=== PATIENT | male | born 1955 | race Caucasian/White ===

== ENCOUNTER 2016-09-18 09:54 | Inpatient (IN) ==
[2016-09-18] MEDS ORDERED: NS 1,000 ML ONE (10:19)
[2016-09-18] MEDS ORDERED: TORADOL IV ONE (10:28)
[2016-09-18] MEDS ORDERED: NS 1,000 ML IV ONE (10:28)
[2016-09-18 10:50] LABS: EOS# 0.02 X1000 (0.0-0.7); EOS% 0.1 % (0.0-10.0); HEMATOCRIT 35.6 % (42.0-52.0); HEMOGLOBIN 12.1 g/dL (14.0-18.0); LYMPH# 0.38 X1000 (1.2-3.4); LYMPH% 1.7 % (20.5-51.1); MANUAL DIFF NEEDED? NO; MCH 29.6 PG (27-31); MONO# 1.16 X1000 (0.11-0.59); MONO% 5.1 % (1.7-9.3); MPV 10.5 FL (7.4-10.4); NEUT% 93.1 % (42.2-75.2); PLT 197 X1000 (130-400); RBC 4.09 XMIL (4.7-6.1)
--- NOTE | 2016-09-18 10:55 | Diag Imaging Result Doc PS360 ---
EXAM: CHEST-PORTABLE HISTORY: hypotension TECHNIQUE: AP portable erect at 1040 COMMENT: The inspiration is suboptimal. There is been no significant change since 01/23/2015. IMPRESSION: Stable chest. Electronically signed by Jeff Salinas 09/18/2016 10:52 AM
[2016-09-18 10:57] LABS: INR 1.38; PROTIME 14.8 Seconds (9.2-11.7)
[2016-09-18 11:07] LABS: CALCIUM 8.1 mg/dL (8.8-10.2); POTASSIUM 4.7 mmol/L (3.5-5.1); TOTAL PROTEIN 4.7 g/dL (6.3-8.3)
[2016-09-18] MEDS ORDERED: ZOSYN 3.375 GM/NS 3.375 GM/50 ML IVPB IV ONE (11:16)
[2016-09-18 11:17] LABS: TOTAL BILIRUBIN 18.52 mg/dL (0.20-1.00)
--- NOTE | 2016-09-18 11:20 | PROVIDER DOCUMENTATION ---
This chart was entered by Megan Quan Scribe, acting as scribe for Sudhir Desai MD. HPI-Abdominal Pain/GI Problem - General Chief Complaint: B/P Problems Stated Complaint: ABD PAIN,LOW B/P Time Seen by Provider: 09/18/16 10:13 Source: patient Allergies/Adverse Reactions: Patient Allergies Allergy/AdvReac Type Severity Reaction Status Date / Time No Known Allergies Allergy Verified 01/23/15 19:38 Home Medications: Home Medication List Medication Instructions Recorded Confirmed Last Taken Type Docusate Sodium [Colace] 100 mg PO DAILY #0 capsule 01/04/15 09/18/16 04/22/15 08:00 Rx Oxycodone/APAP 10 mg/325 mg 1 each PO Q6H PRN PRN #0 tablet 01/04/15 09/18/16 13:00 Rx [Percocet-10] Polyethylene Glycol 3350 [Miralax] 17 gm PO DAILY #0 powder, packet 01/04/1504/19/15 10:00 Rx LISINOpril/HCTZ [Prinzide 0.5 tab PO DAILY 03/27/15 09/18/16 04/22/15 08:00 History 20/12.5MG] Fentanyl 50 mcg TD Q3DAYS 09/18/16 09/18/16 3 Days Ago History - History of Present Illness-ABD Nature of Presenting Problems: Pt is 61 y/o M presents to the ED with generalized abdominal pain. Pt states pain has been present for "few days". Pt states rectal cancer and liver cancer. Pt states he is seeing Dr. Morel at the cancer center. Pt states he is weak and dizzy. Abdominal Pain Onset Location: reports: generalized abdomen Pain Radiation: reports: no radiation Quality of Pain: reports: aching Severity in ED: reports: moderate Onset/Duration: reports: other ("few days") Timing: reports: still present Activities at Onset: reports: light activity Exposure to sick contacts?: No Modifying Factors: improves with: nothing Associated Symptoms: reports: dizziness, weakness. denies: anxiety, arm pain, back/neck pain, chest pain, constipation, cough, diaphoresis, diarrhea, EENT symptoms, fatigue, fever/chills, genitourinary problems, headaches, heartburn, joint pain, loss of appetite, malaise, muscle aches, sinus congestion/drainage, nausea, rash, seizure, shortness of breath, sensory/motor loss, pain with inspiration, swelling/mass in abdomen, syncope, vomiting, trouble walking Last BM: unsure Dark Stools Present?: reports: none noticed Rectal Bleeding: reports: none Rectal Pain: reports: none Emesis Description: reports: none Bruising or Bleeding Gums?: No Similar Symptoms Previously?: Yes Recently seen or treated by another doctor?: Yes Review of Systems - Adult - REVIEW OF SYSTEMS - ADULT Constitutional: reports: no symptoms reported Eyes: reports: no symptoms reported Ears, Nose, Mouth & Throat: reports: no symptoms reported Cardiovascular: reports: no symptoms reported Respiratory: reports: no symptoms reported Gastrointestinal: reports: abdominal pain. denies: diarrhea, nausea, vomiting Genitourinary: reports: no symptoms reported Musculoskeletal: reports: muscle weakness. denies: bone pain, joint pain, neck pain Integumentary: reports: no symptoms reported Neurological: reports: dizziness/vertigo (dizziness). denies: headache/ migraines, numbness, seizure, syncope Psychiatric: reports: no symptoms reported Endocrine: reports: no symptoms reported Hematologic/Lymphatic: reports: no symptoms reported Allergic/Immunologic: reports: no symptoms reported All Other Systems: Reviewed and Negative Past History - Adult - PAST MEDICAL HISTORY-ADULT Review of Records: reports: Nursing Assessment Review, Medications Reviewed, Social history reviewed & non-contributory. Major Childhood Illnesses: reports: denies history Cardiovascular: reports: HTN Respiratory: reports: denies history Gastrointestinal: reports: cancer (rectal), hemorrhoids, other (erosive gastritis) Obstetrical/Gynecological: reports: denies history Genitourinary: reports: denies history Musculoskeletal: reports: denies history Neurological: reports: denies history Psychiatric: reports: denies history Endocrine/Immune: reports: denies history Other Conditions: reports: denies history - PRIOR SURGERIES/PROCEDURES Surgical/Procedure History: reports: cholecystectomy, bowel surgery - IMMUNIZATION STATUS Childhood Immunizations: See Nurse Assessment Flu Vaccine: See Nurse Assessment - FAMILY HISTORY Family History: reviewed, not pertinent - SOCIAL HISTORY Smoking: quit greater than 1 year, cigarettes Substance Use: denies Living Situation: family Physical Exam-General - PHYSICAL EXAM-ADULT Initial Vital Signs Reviewed: Yes - CONSTITUTIONAL General Appearance: alert, mild distress, other (ill in appearance) - EYES Eyes: PERRL/EOMI, other (jaundice to bilateral sclera). negative: sclera injected, subconjunctival hemorrhage - HEAD, EARS, NOSE, MOUTH & THROAT HENMT: normal ENT inspection. negative: angioedema, hearing deficit - NECK Neck: normal inspection. negative: trachial deviation - RESPIRATORY Respiratory: chest non-tender, lungs clear, normal breath sounds. negative: rhonchi, stridor, wheezing - CARDIOVASCULAR Cardiovascular: normal peripheral pulses, regular rate, rhythm. negative: systolic murmur, friction rub - GASTROINTESTINAL (ABDOMEN) Abdominal Exam: normal bowel sounds, distended, tenderness (generalized). negative: hernia, mass - LYMPHATIC Lymphatic: no adenopathy - MUSCULOSKELETAL Back Exam: normal inspection. negative: ecchymosis, swelling Extremity: normal range of motion, non-tender. negative: deformity, swelling, tenderness - SKIN Integumentary: warm/dry, jaundice. negative: diaphoresis, ecchymosis - NEUROLOGIC Neurologic: grossly normal. negative: aphasia, facial droop - PSYCHIATRIC Psych/Mental Status: oriented x 3. negative: anxious, disheveled, paranoid Progress - PLAN OF CARE/RESULTS Progress/Plan/Lab Results: Vital Signs - 8 hr 09/18/16 10:02 Temperature 97.5 F L Pulse Rate 84 Respiratory Rate 18 Blood Pressure 70/40 O2 Sat by Pulse Oximetry 97 Result Diagrams: 09/18/16 10:25 09/18/16 10:25 Departure - Departure Date of Disposition Decision: 09/18/16 Time of Disposition Decision: 11:17 DIAGNOSIS: Hypotension, Generalized weakness, SBP (spontaneous bacterial peritonitis) Disposition: ADMITTED INPATIENT 09 Certified Medical Emergency: Emergent Condition: Stable Referrals and Follow-Ups: None,PCP [Primary Care Provider] - - Critical Care Note This patient required my direct & personal management of CC.: No Attestation - Physician/ PASCUAL Attestation The physician spent face to face time with patient:: Yes Advanced Practice Provider documentation review:: The physician spent face to face time with this patient and agrees with all MLP documentation, treatment, and medical decision making by the MLP. See provider notes for further information. This chart was documented by the indicated scribe, (Megan Quan Scribe) and accurately reflects the services I performed and decisions made by Lloyd arango Christophe I, MD, as attested by the provider's signature.
[2016-09-18 11:59] LABS: URINE SOURCE CATH
[2016-09-18 12:07] LABS: BILIRUBIN URINE LARGE (NEGATIVE); BLOOD URINE SMALL (NEGATIVE); CLARITY SLIGHTLY CLOUDY (CLEAR); COLOR AMBER; GLUCOSE URINE 100 mg/dL (NEGATIVE); LEUKOCYTES URINE TRACE (NEGATIVE); NITRITE URINE POSITIVE (NEGATIVE); PH URINE 6.5; PROTEIN URINE 100 mg/dL (NEGATIVE); SP GRAVITY URINE >= 1.030; URINE CULTURE NEEDED? YES; URINE EPITHELIAL CELLS <10 /HPF (<10); URINE RBC <10 /HPF (<10); URINE WBC <10 /HPF (<10)
--- NOTE | 2016-09-18 14:54 | EKG Report ---
Test Performed on : 09/18/2016 10:49:50 AM Test Reason : LOW BP Blood Pressure : / mmHG Vent. Rate : 068 BPM Atrial Rate : 090 BPM P-R Int : 204 ms QRS Dur : 094 ms QT Int : 442 ms P-R-T Axes : 057 013 037 degrees QTc Int : 469 ms Sinus rhythm. with premature atrial complexes. Low voltage QRS Borderline ECG When compared with ECG of 23-JAN-2015 19:01, premature atrial complexes. are now present QRS voltage has decreased Unconfirmed Result
[2016-09-18] MEDS: NS 1,000 ML IV SCH (17:17)
[2016-09-18] MEDS: ZOSYN 3.375 GM/NS 3.375 GM/50 ML IVPB IV SCH ×2 (17:25→23:57)
[2016-09-18] MEDS: PERCOCET-10 PO PRN (18:41)
[2016-09-19] MEDS: PERCOCET-10 PO PRN ×4 (01:18→20:39)
[2016-09-19] MEDS: NS 1,000 ML IV SCH ×2 (06:04→20:40)
[2016-09-19] MEDS: ZOSYN 3.375 GM/NS 3.375 GM/50 ML IVPB IV SCH ×4 (06:05→23:36)
[2016-09-19] MEDS: ZOFRAN IV PRN (07:19)
[2016-09-19] MEDS: PRINZIDE 20/12.5MG PO SCH (08:52)
[2016-09-19] MEDS: MIRALAX PO SCH (09:44)
[2016-09-19] MEDS: COLACE PO SCH (09:44)
[2016-09-20] MEDS: PERCOCET-10 PO PRN ×2 (04:46→21:34)
[2016-09-20] MEDS: ZOFRAN IV PRN (04:47)
[2016-09-20] MEDS: ZOSYN 3.375 GM/NS 3.375 GM/50 ML IVPB IV SCH ×3 (06:17→17:24)
[2016-09-20] MEDS: COLACE PO SCH (08:42)
[2016-09-20] MEDS: MIRALAX PO SCH (08:42)
[2016-09-20] MEDS: PRINZIDE 20/12.5MG PO SCH (08:44)
--- NOTE | 2016-09-20 10:02 | HISTORY AND PHYSICAL ---
HISTORY OF PRESENT ILLNESS: He presented with lethargy and end-stage liver cancer. This is a 61- year-old well known to Dr. Mai. Was here I think last in December. He had resected rectal cancer, completing adjuvant chemotherapy. He received a couple cycles of FOLFOX and discharged from the hospital. He has received Neulasta injections to help. He was having trouble with frequent hiccups. He was discharged again from this hospital in April of 2015. Apparently, he finished his FOLFOX treatments and presents now, not eating, very lethargic, and may be approaching end-stage. PAST MEDICAL HISTORY: 1. Hypertension. 2. Rectal cancer. Chemotherapy with FOLFOX treatment, I think was completed. 3. GI bleed secondary to erosive gastritis in the past. PREVIOUS SURGICAL HISTORY: 1. Cholecystectomy. 2. Colon resection, tumor removal. 3. Colostomy. 4. Colostomy takedown. FAMILY HISTORY: Father had prostate cancer. Brother had congestive heart failure. Strong family history for diabetes mellitus. SOCIAL HISTORY: Patient was living alone. Stopped smoking about 10 years ago. Was a 2-3 pack a day smoker since age 13. ALLERGIES: No known drug allergies. MEDICATIONS: He is on Colace, lisinopril/hydrochlorothiazide 20/12.5 daily, Percocet 10 a day, MiraLAX. REVIEW OF SYSTEMS: Unable to elicit but just more lethargic. Eating less. Bowels, been constipated. No gross hematuria or dysuria. PHYSICAL EXAMINATION: VITAL SIGNS: On presentation, afebrile. Pulse 76, respirations 20, blood pressure 78/50. LUNGS: Clear in all lung haas. CARDIOVASCULAR EXAMINATION: Regular rhythm and rate without murmur or S3. ABDOMEN: Soft. Abdomen is distended. SKIN: Warm and dry. LABORATORY: Reviewed. Admission white count 22,720, hematocrit 35, platelet count 197,000. Sodium 123, potassium 4.7, chloride 93, BUN 41, creatinine 2.3. Total bilirubin 18.52, AST 384, ALT 98, alkaline phos 1775. Albumin 2. Prothrombin time was 14.8. Urinalysis unremarkable. Chest x-ray unremarkable. ASSESSMENT AND PLAN: End-stage metastatic rectal cancer. The liver appears to have some significant liver failure. I think the family is wanting to pursue hospice. We will see if hospice can evaluate and inpatient hospice care. We will continue to encourage oral intake but we will really address more comfort issues. Abdominal ultrasound done back in May. Heterogeneous liver with multiple heterogeneous echogenicities, masses. We will try some lactulose for his constipation. cc: Camilo Lentz MD
[2016-09-20] MEDS: LACTULOSE PO SCH ×2 (10:42→21:33)
[2016-09-20] MEDS: NS 1,000 ML IV SCH ×2 (10:43→21:33)
--- NOTE | 2016-09-20 11:40 | PROGRESS NOTE ---
DATE: 09/20/2016 SUBJECTIVE: Mr. Manning is doing a little better. He is awake today. He has complained of constipation. He maybe ate 1 bite of biscuit. He states he is not hurting. Cultures with no growth at 48 hours. Two blood cultures and urine culture negative. PHYSICAL EXAMINATION: Vital Signs: Today, 97.4 degrees, pulse 70, respirations 16, blood pressure 67/37. Lungs: Are clear in all lung haas. Cardiovascular Examination: Regular rhythm and rate without murmur or S3. Abdomen: Distended. Skin: He is jaundiced. Is and Os: Urine output 2700 mL. LAB: Reviewed from the . Chest x-ray from the was stable. No significant change from 01/24/2016. ASSESSMENT AND PLAN: 1. Liver cancer, approaching end-stage. 2. Distended abdomen with ascites, questionable peritonitis. Cultures are negative. Continue present antibiotics. 3. Poor oral intake, protein calorie malnutrition. cc: Camilo Lentz MD
[2016-09-21] MEDS: ZOSYN 3.375 GM/NS 3.375 GM/50 ML IVPB IV SCH ×3 (00:24→11:44)
[2016-09-21] MEDS: NS 1,000 ML IV SCH ×2 (00:24→11:44)
--- NOTE | 2016-09-21 03:46 | HISTORY AND PHYSICAL ---
HISTORY OF PRESENT ILLNESS: He is brought in just fever, feeling worse, more lethargic so admitting him on 09/18/2016. This is a 61-year-old with history of rectal cancer, history of hypertension, has had colon resection with tumor removed, colostomy and then colostomy take down. He had undergone chemotherapy and presented with more distention in his abdomen, abdominal tenderness some fever concerned about subacute peritonitis but also with declining from worsening of his underlying malignancy and the plan is to try going to hospice for comfort care. PAST MEDICAL HISTORY: 1. Hypertension. 2. Rectal carcinoma chemotherapy. He has undergone chemotherapy in 2014. 3. GI bleed secondary erosive gastritis. PREVIOUS SURGICAL HISTORY: 1. Cholecystectomy. 2. Colon resection with tumor removal. 3. Colostomy. 4. Colostomy takedown. FAMILY HISTORY: Father had prostate cancer, brother had congestive heart failure. Strong family history of diabetes mellitus. SOCIAL HISTORY: Patient lives alone. Stopped smoking about 10 years ago. Before that was 2-3 pack a day history since age 13. Drinks alcohol used to drink about 5 drinks a week. No illicit drug use. ALLERGIES: No known drug allergies. MEDICATIONS: Will review. REVIEW OF SYSTEMS: He is really not able to give. He is not eating well. Getting weaker. Abdomen distended. Denies respiratory difficulty, no chest pain. No new focal neurologic deficits but more lethargic and having more confusion. DATA: Abdominal ultrasound done on 06/12/2016 heterogenous liver, multiple heterogenous echogenicities, masses consistent with metastatic disease. EXAM: Vital signs: Temperature 98 degrees, pulse 70, respirations 24, blood pressure 76/56. HEENT: Pupils are equal, round. CVP less than 6 cm. Lungs: Clear in all lung haas. Cardiovascular: Regular rhythm, rate, no murmur, S3. PMI nondisplaced. Abdomen: Distended, mildly tender suprapubic tenderness as well. He is jaundiced. Conjunctivae anicteric. Genitourinary: We were putting a French catheter in. LAB: White count 22,720 hematocrit 35, platelet count 197,000. Sodium 123, potassium 4.7, chloride 83, bicarb 26, BUN 41, creatinine 2.3, blood sugar 114, calcium 8.1, alkaline phosphatase 1775, AST 384, ALT 98, albumin was down to 2.0, pro time is 14.8. Urinalysis positive nitrite, 100 glucose. Chest x-ray stable chest. ASSESSMENT AND PLAN: 1. Rectal cancer metastatic liver, appears to be approaching end-stage, suspicion for possible peritonitis. Will start empirically on some antibiotics but think he is reaching end stage, would like to pursue hospice, antibiotics would be for comfort measures for the abdominal discomfort. 2. Hepatic dysfunction with more lethargy and confusion. 3. Protein calorie malnutrition. Poor p.o. intake. 4. We will put a French catheter in for comfort he is so weak. 5. General weakness, gradual decline. Will ask hospice to evaluate for inpatient hospice care. Discussed this with the family. cc: Camilo Lentz MD
[2016-09-21] MEDS: PERCOCET-10 PO PRN (05:10)
[2016-09-21] MEDS ORDERED: DURAGESIC 25 MICROGM/HR PATCH TD SCH (06:00)
[2016-09-21 09:03] VITALS: BP 64/35
[2016-09-21] MEDS: PRINZIDE 20/12.5MG PO SCH (09:03)
[2016-09-21] MEDS: MIRALAX PO SCH (09:04)
[2016-09-21] MEDS: LACTULOSE PO SCH (09:04)
[2016-09-21] MEDS: COLACE PO SCH (09:04)
--- NOTE | 2016-09-21 14:17 | DISCHARGE SUMMARY ---
ADMISSION DATE: 09/18/2016 DISCHARGE DATE: 09/21/2016 HOSPITAL COURSE: He was brought in for fever, feeling worse, very lethargic. Admitted him back on 09/18/2016. He is a 61-year-old with rectal cancer, metastatic, history of hypertension, expanding metastatic to the liver. He has had his tumor removed, colostomy and colostomy takedown. Underwent chemotherapy and then had extensive recurrence in the liver. PAST MEDICAL HISTORY: 1. Hypertension. 2. Rectal carcinoma status post chemotherapy and colon resection and chemotherapy in 2014. 3. GI bleed secondary to erosive gastritis. PREVIOUS SURGICAL HISTORY: 1. Cholecystectomy. 2. Colon resection and tumor removed. 3. Colostomy. 4. Colostomy takedown. The patient was very lethargic with some confusion and was given some fluids and put on lactulose. He did have complaints of constipation and he showed improvement and was able to wake up and at least drink some fluids and felt more comfortable. We put in a French catheter. There is really no further therapy to pursue and family would like to take him home with hospice care, and so we set that up for him. DISCHARGE MEDICATIONS: Colace 100 mg daily. Fentanyl patch 25 mcg every 3 days. Lactulose 30 mL p.o. b.i.d. Prinzide 20. Hydrochlorothiazide 12.5, 1 daily. Oxycodone (Percocet) 10 mg 1 q.6 hours p.r.n. MiraLAX 17 g p.o. daily. cc: Camilo Lentz MD
--- NOTE | 2016-09-21 14:43 | PROGRESS NOTE ---
DATE: 09/21/2016 SUBJECTIVE: Mr. Manning is awake and he is able to eat a little bit and drink some. Comfortable. Family would like to see if they can pursue hospice, take him home. OBJECTIVE: Vital signs: Temperature 97.4 degrees, pulse 67, respirations 64. Respirations 17, blood pressure 64/35. Eyes: Pupils are equal, round. Lungs: Are clear in all lung haas. Cardiovascular: Regular rhythm and rate without murmur or S3. Abdomen: Soft. Skin: Warm and dry. : Urine output 1700 mL. LABORATORY REVIEW: Review from 09/18, liver enzymes and electrolytes reviewed. His albumin is 2. Creatinine 2.3. ASSESSMENT AND PLAN: End-stage metastatic rectal cancer. Family would like to pursue going home with hospice. He appears more comfortable. He has liver dysfunction, and he has is starting to have some renal dysfunction as well. He is eating a little bit, but prognosis is very poor. I do not think he will survive 3 months. I would like to see if we can hospice for home. cc: Camilo Lentz MD
[2016-09-21] MEDS ORDERED: HEPARIN ONE (15:00)
== END 2016-09-21 15:57 | disposition hospice, home (50) ==
LOC: ED 09:54 → 3N 13:23
PROVIDERS: ATTEND Emergency Medicine